=== PATIENT | male | born 1995 | race African-American/Black ===

== ENCOUNTER 2018-10-16 21:54 | Emergency (ER) | payer OTHER ==
[2018-10-16 22:07] VITALS: BP 154/85; PULSE 86; TEMP 98; BMI 34.4
--- NOTE | 2018-10-16 22:15 | PDOC ---
History of Present Illness - General History Source: Patient Exam Limitations: No Limitations - History of Present Illness Initial Comments: 10/16/18 23:27 The patient is a 23 year old male with past medical history significant for DM presents to the emergency department with chest pain. The patient reports the pain been ongoing for the past 1-2 years. The patient reports the pain is localized to mid to left chest wall, thats intermittent in quality. The patient reports the pain been worsening since earlier this year and had increased in frequency in the last couple of days. Denies fever, chils, headache , shortness of breath. Denies any heavy lifting. <Olinda Atwood - Last Filed: 10/16/18 23:25> <Lynda Briceno - Last Filed: 10/17/18 05:23> - General Chief Complaint: Chest Pain Stated Complaint: CHEST PAIN Time Seen by Provider: 10/16/18 22:13 Past History <Olinda Atwood - Last Filed: 10/16/18 23:25> - Past Medical History Anemia: No Asthma: No Cancer: No Cardiac Disorders: No CVA: No COPD: No CHF: No Dementia: No Diabetes: Yes (niddm) GI Disorders: No Disorders: No HTN: No Hypercholesterolemia: No Liver Disease: No Seizures: No Thyroid Disease: No - Surgical History Abdominal Surgery: No Appendectomy: No Cardiac Surgery: No Orthopedic Surgery: Yes (2009 knee replacement bilat.) - Immunization History Immunization Up to Date: Yes - Suicide/Smoking/Psychosocial Hx Smoking Status: No Smoking History: Never smoked Have you smoked in the past 12 months: No Number of Cigarettes Smoked Daily: 0 Information on smoking cessation initiated: No Hx Alcohol Use: No Drug/Substance Use Hx: No Substance Use Type: None Hx Substance Use Treatment: No <Lynda Briceno - Last Filed: 10/17/18 05:23> - Past Medical History Allergies/Adverse Reactions: Allergies Allergy/AdvReac Type Severity Reaction Status Date / Time shellfish derived Allergy Verified 11/28/14 17:05 Cantaloupe Allergy Uncoded 11/28/14 17:05 Watermelon Allergy Uncoded 11/28/14 17:05 Home Medications: Ambulatory Orders Insulin (Levemir) [Levemir Flexpen -] 20 units SQ DAILY@0700 #30 pen 10/06/14 Insulin (Novolog) [Novolog Flexpen -] 0 - 8 units SQ HS #30 pen 10/06/14 Insulin (Novolog) [Novolog Flexpen -] 0 - 8 units SQ TIDAC #30 pen 10/06/14 Insulin (Novolog) [Novolog Flexpen -] 0 units SQ TIDAC #0 pen 12/01/14 Pen Needle, Diabetic [Insulin Pen Needle] 1 each QID #100 dis.needle Review of Systems - Review of Systems Able to Perform ROS?: Yes Comments:: 10/16/18 23:26 General: No fevers or chills, no weakness, no weight loss HEENT: No change in vision. No sore throat,. No ear pain CardioVascular: +chest pain. No shortness of breath Respiratory:No cough, or wheezing. Gastrointestinal: no nausea, vomiting, diarrhea or constipation, No rectal bleeding Genitourinary: No dysuria, hematuria, or frequency Musculoskeletal: No joint or muscle pain or swelling Neurologic: No headache, vertigo, dizziness or loss of consciousness Psychiatric: nor depression Skin: No rashes or easy bruising Endocrine: no increased thirst or abnormal weight change Allergic: no skin or latex allergy All other systems reviewed and normal <Olinda Atwood - Last Filed: 10/16/18 23:25> *Physical Exam - Vital Signs Last Vital Signs Temp Pulse Resp BP Pulse Ox 98 F 86 20 154/85 100 10/16/18 21:59 10/16/18 21:59 10/16/18 21:59 10/16/18 21:59 10/16/18 21:59 - Physical Exam Comments: 10/16/18 23:25 GENERAL: The patient is in no acute distress. ENT: Ears normal, nares patent, oropharynx clear without exudates. Moist mucous membranes. NECK: Normal range of motion, supple, no nuchal rigidity LUNGS: Breath sounds equal, clear to auscultation bilaterally. No wheezes, and no crackles. HEART: Regular rate and rhythm, normal S1 and S2 without murmur, rub or gallop. ABDOMEN: Soft, nontender, normoactive bowel sounds. No guarding, no rebound. No masses palpable. EXTREMITIES: Normal range of motion, no edema. NEUROLOGICAL: Cranial nerves II through XII grossly intact. Normal speech. No focal neurological deficits. SKIN: Warm, Dry, normal turgor, no rashes or lesions noted. <Olinda Atwood - Last Filed: 10/16/18 23:25> - Vital Signs Last Vital Signs Temp Pulse Resp BP Pulse Ox 98 F 86 20 154/85 100 10/16/18 21:59 10/16/18 21:59 10/16/18 21:59 10/16/18 21:59 10/16/18 21:59 <Lynda Briceno - Last Filed: 10/17/18 05:23> ED Treatment Course - LABORATORY CBC & Chemistry Diagram: 10/16/18 23:25 10/16/18 23:25 <Lynda Briceno - Last Filed: 10/17/18 05:23> Medical Decision Making - Medical Decision Making 10/17/18 00:06 Pt has normal labs, except CPK is elevated 375. Trop normal. Pt has HTN; he will be asked to follow with his PMD. or with the clinic here. Pt advised to eat a fruit veggie and low fat diet. We will not get a 2nd cardiac enzyme at this time, as the chest pain has been ongoping x 1 year 10/17/18 00:08 CXR normal and EKG shows t wave inversions on 2 of the inf leads 10/17/18 05:23 2nd EKG is unchanged and we will not send off 2nd cardiac enzymes. <Lynda Briceno - Last Filed: 10/17/18 05:23> *DC/Admit/Observation/Transfer - Attestations Scribe Attestion: 10/16/18 23:26 Documentation prepared by Olinda Atwood, acting as clinical medical assistant for Lynda Briceno MD. <Olinda Atwood - Last Filed: 10/16/18 23:25> - Discharge Dispostion Decision to Admit order: No <Lynda Briceno - Last Filed: 10/17/18 05:23> Diagnosis at time of Disposition: Atypical chest pain - Discharge Dispostion Disposition: HOME Condition at time of disposition: Stable - Referrals Referrals: Gurpreet Friedman MD [Staff Physician] - - Patient Instructions Printed Discharge Instructions: Eating a Diet Rich in Fruits and Vegetables, DI for Atypical Chest Pain
[2018-10-16 23:31] LABS: BASO % 0.9 % (0-2.0); EOS % 1.4 % (0-4.5); HEMATOCRIT 52.5 % (35.4-49); HEMOGLOBIN 17.4 GM/dL (11.7-16.9); LYMPH % 41.8 % (8-40); MCH 28.9 pg (25.7-33.7); MCHC 33.1 g/dl (32.0-35.9); MEAN CELL VOLUME 87.4 fl (80-96); MEAN PLT VOLUME 9.2 fl (7.5-11.1); MONO % 8.2 % (3.8-10.2); NEUT % 47.7 % (42.8-82.8); PLATELET COUNT 210 K/MM3 (134-434); RDW 13.6 % (11.9-15.9); WHITE BLOOD COUNT 4.7 K/mm3 (4.0-10.0)
[2018-10-17 00:01] LABS: ALBUMIN 3.7 g/dl (3.4-5.0); ALK PHOS 90 U/L (45-117); ANION GAP 7 MMOL/L (8-16); BILIRUBIN,TOTAL 0.4 mg/dL (0.2-1); BLOOD UREA NITROGEN 7 mg/dL (7-18); CALCIUM 9.3 mg/dL (8.5-10.1); CHLORIDE 106 mmol/L (98-107); CO2 25 mmol/L (21-32); CREATININE 0.8 mg/dL (0.55-1.3); GLUCOSE,RANDOM 171 mg/dL (74-106); POTASSIUM 4.6 mmol/L (3.5-5.1); SGOT/AST 22 U/L (15-37); SGPT/ALT 53 U/L (13-61); SODIUM 137 mmol/L (136-145); TOT PROT 7.2 g/dl (6.4-8.2)
[2018-10-17 00:01] LABS: COCAINE, UR NEGATIVE ng/ml (CUTOFF=300); METHADONE, UR NEGATIVE ng/ml (CUTOFF=300); OPIATES, URI NEGATIVE ng/ml (CUTOFF=300); PHENCYCLIDINE,URINE NEGATIVE ng/ml (CUTOFF=25); URINE AMPHETAMINES NEGATIVE ng/ml (CUTOFF=500); URINE BARBITURATES NEGATIVE ng/ml (CUTOFF=200); URINE BENZODIAZEPINES NEGATIVE ng/ml (CUTOFF=200)
--- NOTE | 2018-10-19 10:25 | EKG ---
Test Reason : Blood Pressure : / mmHG Vent. Rate : 078 BPM Atrial Rate : 078 BPM P-R Int : 150 ms QRS Dur : 080 ms QT Int : 352 ms P-R-T Axes : 050 045 001 degrees QTc Int : 401 ms NORMAL SINUS RHYTHM WITH SINUS ARRHYTHMIA NONSPECIFIC T WAVE ABNORMALITY ABNORMAL ECG WHEN COMPARED WITH ECG OF 16-OCT-2018 21:52, NO SIGNIFICANT CHANGE WAS FOUND Confirmed by NATHANIEL WEEBR MD ([id number]) on 10/19/2018 10:25:36 AM Referred By: Confirmed By:NATHANIEL WEBER MD
--- NOTE | 2018-10-20 14:44 | EKG ---
Test Reason : Blood Pressure : / mmHG Vent. Rate : 083 BPM Atrial Rate : 083 BPM P-R Int : 146 ms QRS Dur : 088 ms QT Int : 354 ms P-R-T Axes : 050 054 -07 degrees QTc Int : 415 ms NORMAL SINUS RHYTHM ABNORMAL QRS-T ANGLE, CONSIDER PRIMARY T WAVE ABNORMALITY ABNORMAL ECG WHEN COMPARED WITH ECG OF 29-NOV-2014 02:27, NO SIGNIFICANT CHANGE WAS FOUND Confirmed by Connor Delcid ([id number]) on 10/20/2018 2:44:44 PM Referred By: Confirmed By:Connor Delcid
== END 2018-10-17 02:16 | disposition home or self-care (01) ==
LOC: JER 21:54
DX: R07.9 Chest pain, unspecified (principal); E10.9 Type 1 diabetes mellitus without complications; Z79.4 Long term (current) use of insulin; I10 Essential (primary) hypertension; R74.8 Abnormal levels of other serum enzymes
CPT/HCPCS: 36415; 71046-TC-FY; 80053; 80307; 82550; 82553; 84484; 85025; 93005; 93010; 99281-25